=== PATIENT | female | born 1985 | race Caucasian/White ===

== ENCOUNTER 2021-05-06 12:28 | Emergency (ER) | payer OTHER, SELFPAY ==
--- NOTE | 2021-05-06 12:37 | ED.URI ---
HPI - URI/Sore Throat General Chief Complaint: Upper Respiratory Infection Stated Complaint: sore throat Time Seen by Provider: 05/06/21 12:37 Source: patient and RN notes reviewed History of Present Illness HPI Narrative: Patient is a 35-year-old female who presents the urgent care with complaints of a sore throat that started last night. 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 Denies of any other upper respiratory symptoms. Denies of fever, chills, nausea, vomiting. Patient has not taken anything [id number] for her symptoms. No other acute complaints. No acute distress noted. Patient aware of the plan of care. Some parts of this dictation were generated by voice recognition software and may contain typographical and/or grammatical inaccuracies. Related Data Home Medications Medication Instructions Recorded Confirmed estradiol 0.5 mg tablet 0.5 mg PO DAILY 01/19/21 05/06/21 fluticasone propionate 50 1 spray INTRANASAL DAILY PRN 01/19/21 05/06/21 mcg/actuation nasal spray,suspension Allergies Allergy/AdvReac Type Severity Reaction Status Date / Time adhesive Allergy Unknown RASH-GLUE Verified 05/06/21 12:34 CAUSES BLISTERS OVER INCISIONS cefaclor Allergy Unknown Swelling Verified 05/06/21 12:34 ketoconazole Allergy Unknown Skin Verified 05/06/21 12:34 Reaction sulfamethizole Allergy Unknown Swelling Verified 05/06/21 12:34 trimethoprim Allergy Unknown Unknown Verified 03/01/21 10:25 Review of Systems Review of Systems: CONSTITUTIONAL: Denies fever, chills, or sweats. EYES: Denies visual changes, redness, or discharge. ENT: Denies rhinorrhea, congestion, otalgia. Reports of sore throat CARDIOVASCULAR: Denies chest pain, palpitations, or edema. RESPIRATORY: Denies cough or dyspnea. GASTROINTESTINAL: Denies abdominal pain, nausea, vomiting, or diarrhea. GENITOURINARY: Denies dysuria or hematuria. SKIN: Denies rash or itching. MUSCULOSKELETAL: Denies back pain, joint pain, or myalgia. NEUROLOGIC: Denies headache, numbness, or weakness. All other systems reviewed are negative, except as documented in HPI. [facility] Surgical History Surgical History (Updated 03/01/21 @ 10:28 by Dorcas Klein CMA) History of hysterectomy Family History Family History Grandparent Diabetes mellitus Family history of malignant neoplasm of breast Family history of malignant neoplasm of ovary Cerebrovascular accident Family history of arthritis Father Hypertension Mother Family history of seizure disorder Social History Social History (Updated 03/01/21 @ 10:28 by Dorcas Klein [facility]) Alcohol intake: never Substance use: never Gender identity (if verbalized by the patient): Female Comments At the time of my signature, I reviewed and agree with the nursing past medical, surgical, social, and family history. There is no relevant family history pertinent to the patient complaint. Exam Narrative: GENERAL: This is a well-nourished, well-developed patient, in no apparent distress. HEAD: normocephalic, atraumatic. EYES: PERRL. Sclera clear/white. Vision is grossly intact. EARS: External ears normal, auditory canals clear and without drainage, TMs normal without perforation. Hearing grossly intact. NOSE: External nose normal with no obvious nasal discharge, nares without redness, no rhinorrhea. THROAT: Mucous membranes moist, moderate erythema of the posterior oropharynx with moderate postnasal drainage. No exudate or ulceration NECK: Neck supple, non-tender without lymphadenopathy CARDIOVASCULAR: Regular rate and rhythm without murmurs, gallops, or rubs. RESPIRATORY: Clear to auscultation. Breath sounds equal bilaterally. No wheezes, rales, or rhonchi. SKIN: warm, intact with no suspicious lesions or rash, good texture and turgor. NEURO: awake, alert, and oriented to
[2021-05-06 12:39] VITALS: BP 145/92; PULSE 81; RESP 16; TEMP 36.7; O2SAT 100
== END 2021-05-06 13:00 | disposition home or self-care (01) ==
PROVIDERS: Emergency Provider Nurse Practitioner Family; PCP Family Medicine
DX: J02.9 Acute pharyngitis, unspecified (principal)
CPT/HCPCS: 87081; 87880; 99213; G0463

== ENCOUNTER → 2021-06-02 14:57 | Outpatient (CLI) | payer OTHER, SELFPAY ==
--- NOTE | ~2021-06-02 | XR_ITS ---
EXAMINATION: XR hand BI arthritis min 3V DATE: 06/02/2021 15:12 INDICATION: Pain in joints of right hand. TECHNIQUE: 4 views of right hand and 4 views of left hand on 7 radiographs were obtained. COMPARISON: None. FINDINGS: RIGHT HAND: Bone alignment is normal. No fracture. There is mild osteoarthritis of first and third me tacarpophalangeal joints characterized by tiny marginal osteophytes. LEFT HAND: Bone alignment is normal. No fracture. There is a benign bone island in head of third meta carpal. Joint spaces are normal. IMPRESSION: 1. Mild polyarticular osteoarthritis of right hand. Reviewed, dictated and finalized at location A.
== END ==
PROVIDERS: PCP Physician Assistant Medical; Visit Provider Physician Assistant Medical
DX: M25.541 Pain in joints of right hand (principal); M19.041 Primary osteoarthritis, right hand; M18.11 Unilateral primary osteoarthritis of first carpometacarpal joint, right hand
CPT/HCPCS: 73130

== ENCOUNTER 2022-07-11 08:57 | Emergency (ER) | payer OTHER, SELFPAY ==
--- NOTE | 2022-07-11 09:57 | ED.URI ---
HPI - URI/Sore Throat General Chief Complaint: Upper Respiratory Infection Stated Complaint: SORE THROAT/WHITE SPOT IN THROAT Time Seen by Provider: 07/11/22 09:52 Source: patient Mode of arrival: ambulatory Limitations: no limitations History of Present Illness HPI Narrative: Patient presents today complaining of a sore throat since yesterday. Denies any additional symptoms to include fever, shortness of breath, difficulty swallowing. States was diagnosed with strep throat 4 days ago. She currently rates her pain 4/10, and has tried no [id number] treatment prior to arrival. Related Data Allergies Allergy/AdvReac Type Severity Reaction Status Date / Time adhesive Allergy Unknown RASH-GLUE Verified 07/11/22 09:50 CAUSES BLISTERS OVER INCISIONS cefaclor Allergy Unknown Swelling Verified 07/11/22 09:50 ketoconazole Allergy Unknown Skin Verified 07/11/22 09:50 Reaction sulfamethizole Allergy Unknown Swelling Verified 07/11/22 09:50 trimethoprim Allergy Unknown Unknown Verified 07/11/22 09:50 Review of Systems Review of Systems: CONSTITUTIONAL: Denies body aches, fever, chills, or sweats. EYES: Denies visual changes, redness, or discharge. ENT: Denies rhinorrhea, congestion, or otalgia.+ sore throat CARDIOVASCULAR: Denies chest pain, palpitations, or edema. RESPIRATORY: Denies cough or dyspnea. GASTROINTESTINAL: Denies abdominal pain, nausea, vomiting, or diarrhea. GENITOURINARY: Denies dysuria or hematuria. SKIN: Denies rash, itching, or wounds. MUSCULOSKELETAL: Denies back pain, joint pain, or myalgia. NEUROLOGIC: Denies headache, numbness, tingling, or weakness. PSYCH: Denies depression or anxiety. [facility] Past Medical History Medical History MELVIN positive Bilateral hand pain Bilateral hand pain Myalgia Surgical History Surgical History History of hysterectomy Family History Family History Grandparent Diabetes mellitus Family history of malignant neoplasm of breast Family history of malignant neoplasm of ovary Cerebrovascular accident Family history of arthritis Father Hypertension Mother Family history of seizure disorder Social History Social History Smoking status: Never smoker Alcohol intake: never Substance use: never Gender identity (if verbalized by the patient): Female Comments At time of signature, I have reviewed and agree with nursing past medical, surgical, social and family history unless otherwise noted. Please see nursing chart for further information. There is no relevant family history pertinent to the presenting complaint Exam Narrative: GENERAL: Well-appearing, well-nourished, and in no acute distress. HEAD: Normocephalic, atraumatic. EYES: EOMI. No redness or drainage. Conjunctivae normal. ENT: Mucous membranes pink and moist. Nares clear. No rhinorrhea. TMs normal bilaterally. Throat erythematous and mildly edematous without exudate. Uvula midline. NECK: Normal AROM. Supple. No lymphadenopathy. CHEST: No respiratory distress. Clear to auscultation. HEART: Regular rate and rhythm. No murmur appreciated. Normal peripheral pulses. EXTREMITIES: Normal range of motion. No edema. SKIN: Warm, dry, no rash. Capillary refill normal. Normal skin turgor. NEURO: No focal deficits. Alert and oriented x3. Gait steady. PSYCH: Normal affect. No signs of depression or anxiety. Course Course Level of Care: Express Care Visit Vital Signs Vital signs: Vital Signs Temperature 97.8 F 07/11/22 10:02 Pulse Rate 92 07/11/22 10:02 Respiratory Rate 16 07/11/22 10:02 Blood Pressure 121/83 07/11/22 10:02 Pulse Oximetry 100 07/11/22 10:02 Oxygen Delivery Room Air 07/11/22 10:02 Te
[2022-07-11 10:02] VITALS: BP 121/83; PULSE 92; RESP 16; TEMP 36.6; O2SAT 100
== END 2022-07-11 10:18 | disposition home or self-care (01) ==
PROVIDERS: Emergency Provider Nurse Practitioner; PCP Family Medicine
DX: J02.0 Streptococcal pharyngitis (principal)
CPT/HCPCS: 87880; 99213; G0463

== ENCOUNTER 2023-09-13 16:07 | Emergency (ER) | payer OTHER, SELFPAY ==
[2023-09-13 16:17] VITALS: BP 136/96; PULSE 121; RESP 16; TEMP 36.8; O2SAT 100
--- NOTE | 2023-09-13 17:02 | ED.ABDPAIN ---
HPI - Abdominal Pain General Chief Complaint: Abdominal Pain Stated Complaint: Abdominal pain Time Seen by Provider: 09/13/23 16:15 Source: patient and RN notes reviewed Mode of arrival: ambulatory Limitations: no limitations History of Present Illness HPI narrative: Patient presents today complaining of left lower quadrant abdominal pain that started this morning. She denies any additional symptoms to include fever, nausea, vomiting, diarrhea, constipation, urinary symptoms. She currently rates her pain at rest 3/10, but this increases to 8/10 with movement. She has tried no [id number] medication for symptoms prior to arrival. She has had a full hysterectomy due to endometriosis Related Data Allergies Allergy/AdvReac Type Severity Reaction Status Date / Time adhesive Allergy Unknown RASH-GLUE Verified 09/13/23 16:16 CAUSES BLISTERS OVER INCISIONS cefaclor Allergy Unknown Swelling Verified 09/13/23 16:16 ketoconazole Allergy Unknown Skin Verified 09/13/23 16:16 Reaction sulfamethizole Allergy Unknown Swelling Verified 09/13/23 16:16 trimethoprim Allergy Unknown Unknown Verified 09/13/23 16:16 Review of Systems Review of Systems: CONSTITUTIONAL: Denies body aches, fever, chills, or sweats. EYES: Denies visual changes, redness, or discharge. ENT: Denies rhinorrhea, congestion, sore throat, or otalgia. CARDIOVASCULAR: Denies chest pain, palpitations, or edema. RESPIRATORY: Denies cough or dyspnea. GASTROINTESTINAL: Denies nausea, vomiting, or diarrhea.+ abdominal pain GENITOURINARY: Denies dysuria or hematuria. SKIN: Denies rash, itching, or wounds. MUSCULOSKELETAL: Denies back pain, joint pain, or myalgia. NEUROLOGIC: Denies headache, numbness, tingling, or weakness. PSYCH: Denies depression or anxiety. [facility] Past Medical History Medical History MELVIN positive Bilateral hand pain Bilateral hand pain Myalgia Surgical History Surgical History History of hysterectomy Family History Family History Grandparent Diabetes mellitus Family history of malignant neoplasm of breast Family history of malignant neoplasm of ovary Cerebrovascular accident Family history of arthritis Father Hypertension Mother Family history of seizure disorder Social History Social History Smoking status: Never smoker Alcohol intake: never Substance use: never Lack of Transportation: No Lack of Food: Never True Current Housing: I Have Housing Concerned About Future Housing: No Difficulty Paying Gas/Electric Bills: No Difficulty Paying for Meds: No Currently Unemployed: No Education: Bachelor's Degree Difficulty w/ Childcare or Family Care: No Gender identity (if verbalized by the patient): Female Comments At time of signature, I have reviewed and agree with nursing past medical, surgical, social and family history unless otherwise noted. Please see nursing chart for further information. There is no relevant family history pertinent to the presenting complaint Exam Narrative: GENERAL: Well-appearing, well-nourished, and in no acute distress. HEAD: Normocephalic, atraumatic. EYES: EOMI. No redness or drainage. Conjunctivae normal. ENT: Mucous membranes pink and moist. NECK: Normal AROM. CHEST: No respiratory distress. Clear to auscultation. HEART: Regular rate and rhythm. No murmur appreciated. Normal peripheral pulses. ABDOMEN: Soft, nondistended, normal active bowel sounds. + tenderness with rebound and guarding to the left lower abdomen, even with light touch EXTREMITIES: Normal range of motion. No edema. SKIN: Warm, dry, no rash. Capillary refill normal. Normal skin turgor. NEURO: No focal deficits. Alert and oriented
== END 2023-09-13 17:09 | disposition short-term general hospital (02) ==
PROVIDERS: Emergency Provider Nurse Practitioner; PCP Family Medicine
DX: R10.32 Left lower quadrant pain (principal)
CPT/HCPCS: 99212; G0463

== ENCOUNTER 2023-09-13 17:30 | Emergency (ER) | payer OTHER, SELFPAY ==
[2023-09-13] VITALS (10 sets, daily range): BP systolic 117–140; BP diastolic 73–109; PULSE 106–110; RESP 16–18; TEMP 36.3–36.7; O2SAT 98–100
--- NOTE | ~2023-09-13 | CT_ITS ---
EXAMINATION: CT abdomen pelvis w con DATE: 09/13/2023 19:27 INDICATION: Left lower quadrant abdominal pain TECHNIQUE: Computed tomography (CT) of the abdomen and pelvis was performed with 100 mL Omnipaque 350 intravenous contrast. Automated exposure control and iterative reconstruction technique were employe d. The dose-length product was 362.36 mGy-cm. COMPARISON: None. FINDINGS: The visualized portions of the lung bases demonstrate mild atelectasis. No pleural effusion . The heart size is normal. No pericardial effusion. There is mild pectus excavatum. The liver, gallb ladder, spleen, pancreas, adrenal glands, and kidneys are normal. There are no dilated loops of bowel . The appendix is normal. There is fat stranding around an epiploic appendage of sigmoid colon, consi stent with epiploic appendagitis. There are no pathologically enlarged lymph nodes. There is no free intraperitoneal fluid. The bones are unremarkable. IMPRESSION: 1. Epiploic appendagitis of sigmoid colon. Reviewed, dictated and finalized at location E. [employer]NALY[employer]EL[employer]
[2023-09-13 17:49] LABS: Basophils Absolute Auto 0.1 K/mm3 (0.0-0.1); Basophils Percent Auto 0.8 % (0.2-1.2); Eosinophils Absolute Auto 0.2 K/mm3 (0-0.3); Eosinophils Percent Auto 1.8 % (0-4.4); Hematocrit 43.6 % (37.0-47.0); Immature Granulocyte Absolute 0.04 K/mm3 (0.00-0.031); Immature Granulocyte Percent A 0.3 % (0-0.5); Lymphocytes Absolute Auto 2.29 K/mm3 (0.9-3.2); Lymphocytes Percent Auto 19.7 % (18.3-44.2); Mean Corpuscular HGB Conc 32.1 g/dl (32-36); Mean Corpuscular Hemoglobin 27.9 pg (26-34); Mean Platelet Volume 11.4 fl (7.4-10.4); Monocytes Absolute Auto 0.8 K/mm3 (0.1-0.6); Monocytes Percent Auto 6.4 % (2.6-8.5); Neutrophils Absolute Auto 8.3 K/mm3 (1.3-6.7); Platelet Count Result 327 k/mm3 (150-375); Red Blood Count 5.01 M/mm3 (4.2-5.4); Red Cell Distribution Width 13.2 % (11.5-14.5); White Blood Count 11.6 K/mm3 (4.5-10.0)
[2023-09-13 18:03] LABS: Appearance Urine Cloudy (Clear); Bacteria Urine 4+ /hpf; Bilirubin Urine Negative (Negative); Blood Urine Negative (Negative); Color Urine Yellow (Yellow); Glucose Urine UA Negative (Negative); Ketones Urine 1+ mg/dL (Negative); Leukocyte Esterase Ur Negative LEU/UL (Negative); Nitrate Urine Negative (Negative); Protein Urine Negative (Negative); RBC Urine 0-2 /hpf (0-2); Specific Grav Ur 1.009 (1.001-1.035); Squamous Epithelial Cell Urine Few /hpf (Few); Urobilinogen Urine 0.2 mg/dL (<2.0); pH Urine 5.5 (5.0-9.0)
--- NOTE | 2023-09-13 18:04 | ED.GENADULT ---
HPI - General Adult General Chief complaint: Abdominal Pain Stated complaint: left flank pain Time Seen by Provider: 09/13/23 17:45 Source: patient Mode of arrival: ambulatory Limitations: no limitations History of Present Illness HPI narrative: This is a 38-year-old female who presents to the ED with chief complaint of left lower quadrant abdominal pain onset this morning shortly after waking up. Reports that it got worse throughout the day so she went to urgent care and was referred here. Reports pain is 8/10. Denies any urinary issues or problems with bowel movements. Denies nausea, vomiting, diarrhea, fevers, chills. reports a total of 5 laparoscopic procedures for endometriosis and hysterectomy but no other abdominal surgical history. Related Data Allergies Allergy/AdvReac Type Severity Reaction Status Date / Time adhesive Allergy Unknown RASH-GLUE Verified 09/13/23 17:36 CAUSES BLISTERS OVER INCISIONS cefaclor Allergy Unknown Swelling Verified 09/13/23 17:36 ketoconazole Allergy Unknown Skin Verified 09/13/23 17:36 Reaction sulfamethizole Allergy Unknown Swelling Verified 09/13/23 17:36 trimethoprim Allergy Unknown Unknown Verified 09/13/23 17:36 Review of Systems Review of Systems: All systems as dictated in HPI [facility] Past Medical History Medical History MELVIN positive Bilateral hand pain Bilateral hand pain Myalgia Surgical History Surgical History History of hysterectomy Family History Family History Grandparent Diabetes mellitus Family history of malignant neoplasm of breast Family history of malignant neoplasm of ovary Cerebrovascular accident Family history of arthritis Father Hypertension Mother Family history of seizure disorder Social History Social History Smoking status: Never smoker Alcohol intake: never Substance use: never Lack of Transportation: No Lack of Food: Never True Current Housing: I Have Housing Concerned About Future Housing: No Difficulty Paying Gas/Electric Bills: No Difficulty Paying for Meds: No Currently Unemployed: No Education: Bachelor's Degree Difficulty w/ Childcare or Family Care: No Gender identity (if verbalized by the patient): Female Exam Narrative: GENERAL: Well-appearing, well-nourished, and in no acute distress. HEAD: Normocephalic, atraumatic. EYES: PERRLA and EOMI. ENT: Nares clear, no rhinorrhea or epistaxis. Mucous membranes moist. Oropharynx without tonsillar hypertrophy exudate or other lesions. NECK: Supple. No adenopathy or masses. CHEST: No respiratory distress. Clear to auscultation. No wheezes rales or rhonchi HEART: Regular rate and rhythm. No murmur heard. Normal peripheral pulses. ABDOMEN: left lower quadrant tenderness focally. Soft, otherwise nontender, nondistended, normal active bowel sounds. negative. negative peritoneal signs. MSK: Normal range of motion. No edema. SKIN: Warm, dry, no rash. NEURO: Alert and oriented x3. No focal deficits. PSYCH: Normal mood and affect. Course Vital Signs Vital signs: Vital Signs Temperature 97.4 F L 09/13/23 17:33 Pulse Rate 106 H 09/13/23 17:33 Respiratory Rate 18 09/13/23 17:33 Blood Pressure 140/109 H 09/13/23 17:33 Pulse Oximetry 100 09/13/23 17:33 Oxygen Delivery Room Air 09/13/23 17:33 Temperature 98.0 F 09/13/23 18:29 Pulse Rate 110 H 09/13/23 18:29 Respiratory Rate 16 09/13/23 18:29 Blood Pressure 117/73 09/13/23 20:52 Pulse Oximetry 100 09/13/23 20:02 Oxygen Delivery Room Air 09/13/23 17:[address] [facility] Narrative Medical decision making narrative: This is a 30-year-old female who presents to the ED
[2023-09-13 18:12] LABS: Add Urine Microscopic? YES
[2023-09-13] MEDS: SODIUM CHLORIDE 0.9% IV 1,000 ML 999 ML IV CONT (18:45)
[2023-09-13 19:05] LABS: Alanine Aminotransferase 22 U/L (6-35); Albumin Level 4.9 g/dL (3.5-5.1); Alkaline Phosphatase 65 U/L (38-126); Anion Gap 12 mmol/L (8-16); Aspartate Amino Transferase 38 U/L (14-36); Bilirubin,Total 0.8 mg/dL (0.2-1.3); Blood Urea Nitrogen 14 mg/dL (7-17); Calcium 10.1 mg/dL (8.4-10.2); Carbon Dioxide 25 mmol/L (22-30); Chloride 102 mmol/L (98-107); Estimated CRCL calculation 81 ml/min; Estimated Glomerular Filt Rate > 60; Glucose 92 mg/dL (65-110); Lipase 221 U/L (23-300); Potassium 4.3 mmol/L (3.4-5.0); Sodium 139 mmol/L (137-145)
== END 2023-09-13 20:53 | disposition home or self-care (01) ==
PROVIDERS: Emergency Medicine; Emergency Provider Physician Assistant; PCP Family Medicine
DX: K63.89 Other specified diseases of intestine (principal); Z90.710 Acquired absence of both cervix and uterus
CPT/HCPCS: 36415; 74177; 80053; 81001; 83690; 85025; 87086; 96360; 99284; J7030; Q9967

== ENCOUNTER 2025-04-19 09:44 | Emergency (ER) | payer OTHER, SELFPAY ==
--- NOTE | 2025-04-19 09:53 | ED.URI ---
HPI - URI/Sore Throat General Chief Complaint: Upper Respiratory Infection Stated Complaint: SORE THROAT Time Seen by Provider: 04/19/25 10:29 Source: patient and RN notes reviewed Mode of arrival: ambulatory Limitations: no limitations History of Present Illness HPI Narrative: 39-year-old female presents concern for sore throat and exposure to strep throat. She has had a sore throat and ear pressure for 1 day, her had strep throat last week. 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 She denies runny nose, stuffy nose, cough, fever, body aches, chills, sweats. MD elicited complaint: sore throat Related Data Allergies Allergy/AdvReac Type Severity Reaction Status Date / Time adhesive Allergy Unknown RASH-GLUE Verified 02/18/25 11:35 CAUSES BLISTERS OVER INCISIONS cefaclor Allergy Unknown Swelling Verified 02/18/25 11:35 ketoconazole Allergy Unknown Skin Verified 02/18/25 11:35 Reaction sulfamethizole Allergy Unknown Swelling Verified 02/18/25 11:35 trimethoprim Allergy Unknown Unknown Verified 02/18/25 11:35 Review of Systems Review of Systems: CONSTITUTIONAL: Denies malaise, chills, sweats, or fever. EYES: Denies visual changes, redness, or discharge. ENT: Reports rhinorrhea, congestion, sinus pain. Reports otalgia and sore throat. CARDIOVASCULAR: Denies chest pain, palpitations, or edema. RESPIRATORY: Denies cough. Denies dyspnea. GASTROINTESTINAL: Denies abdominal pain, nausea, vomiting, diarrhea SKIN: Denies rash or itching. MUSCULOSKELETAL: Denies myalgia. NEUROLOGIC: Denies headache. All systems reviewed & are unremarkable except as noted in HPI and below PMFSH Past Medical History Medical History Myalgia Bilateral hand pain Bilateral hand pain MELVIN positive Surgical History Surgical History History of hysterectomy Family History Family History Grandparent Diabetes mellitus Family history of malignant neoplasm of breast Family history of malignant neoplasm of ovary Cerebrovascular accident Family history of arthritis Father Hypertension Mother Family history of seizure disorder Social History Social History (Updated 02/18/25 @ 11:36 by JACOB Ravi Smoking status: Never smoker Alcohol intake: never Substance use: never Substance use type: marijuana Last use: gummies at night Lack of Transportation: No Lack of Food: Never True Current Housing: I Have Housing Concerned About Future Housing: No Difficulty Paying Gas/Electric Bills: No Difficulty Paying for Meds: No Currently Unemployed: No Education: Bachelor's Degree Difficulty w/ Childcare or Family Care: No Gender identity (if verbalized by the patient): Female Comments At time of signature, agree with nursing past medical, surgical, social and family history. There is no relevant family history pertinent to the presenting complaint Exam Narrative: GENERAL: Well-appearing, well-nourished, and in no acute distress. HEAD: Normocephalic EYES: PERRLA, conjunctivae clear ENT: Nares clear. Mucous membranes moist. TM pearly humphreys with dull light reflex bilaterally; no tragal tenderness. Oropharynx erythematous without lesions. Tonsils not enlarged and without exudate, no drooling, no hoarseness, no trismus, uvula midline. NECK: Supple. No lymphadenopathy CHEST: Clear to auscultation, breath sounds equal. No wheezing, rhonchi, rales, or stridor. No respiratory distress, speaks in full sentences. HEART: Regular rate and rhythm. No murmur heard. SKIN: Warm, dry, no rash. NEURO: Alert and oriented x3. PSYCH: Normal mood and affect Course Course Emergency Course: Patient is aware of diagnosis, understands and agrees to treatment plan. Anticipatory guidance given. Patient agrees to follow-up as directed and is aware of reasons to seek care at the emergency department. Portions of this record may have been created with voice recognition software Level of Care: Express Care Visit Vital Signs Vital signs: Reviewed. MDM - URI/Sore Throat MDM Narrative Medical decision making narrative: Differential diagnosis considered: Graham virus, strep pharyngitis, allergic rhinitis, upper respiratory tract infection, sinusitis, rhinosinusitis, nasopharyngitis. viral pharyngitis, otitis media, otitis externa, pneumonia, bronchitis, viral cough syndrome, viral syndrome, and influenza. Exam findings show no acute concerns or changes; patient is non-toxic appearing and is in no distress. Patient is appropriate for outpatient treatment and follow-up. Lab Data Attestation: I reviewed the patient's lab results. Critical Care Time Critical Care Time Critical Care Time: No Discharge Plan Discharge Clinical Impression: Pharyngitis, Exposure to strep throat Patient Disposition: Home Condition: Stable Instructions: Antibiotic Form, Strep Throat (ED) Additional Instructions: -Take the medication as prescribed. Throw away the toothbrush after 24hours of antibiotic. -Eat and drink things that are easy to swallow, like tea or soup, or popsicles to suck on. -Oral rinses such as: Salt water gargles and/or may use topical anesthetic (eg. Chloraseptic spray) or lozenges to relieve dryness or throat pain). -Take Tylenol and ibuprofen as needed for pain and fever as directed. -Frequent hand washing or hand cellular biologist is one of the best ways to prevent spread of infection. -Follow up with primary care provider in 2-3 days if condition is not improving; or seek ER visit if you have trouble breathing, cannot drink enough fluids, have muffled voice, difficulty opening your mouth, or severe swelling. Patient Language: Nauruan Prescriptions: New azithromycin [Zithromax Z-Talon] 250 mg tablet See Rx Instructions .ROUTE .COMPLEX Qty: 6 0RF Rx Instructions: take 500 mg today (day 1), then 250 mg for 4 days (days 2-5) No Action selenium sulfide 2.5 % lotion 1 applic topical DAILY 7 Days Qty: 120 2RF cetirizine-pseudoephedrine [Zyrtec-D] 5-120 mg tablet extended release 12 hr 1 tablet PO .qd Qty: 90 3RF fluticasone propionate [Flonase Allergy Relief] 50 mcg/actuation spray,suspension 2 spray intranasal DAILY Qty: 16 3RF Rx Instructions: administer into each nostril duloxetine 40 mg capsule,delayed release(DR/EC) See Rx Instructions .ROUTE .COMPLEX Qty: 90 1RF Dose Instruction: TAKE 1 CAPSULE DAILY Rx Instructions: TAKE 1 CAPSULE DAILY estradiol [Estrace] 1 mg tablet 1 mg PO DAILY Qty: 90 1RF Follow-up/Referrals: Pj Ladd MD [Primary Care Provider, [facility]]
[2025-04-19 10:16] VITALS: BP 134/90; PULSE 75; RESP 20; TEMP 36.4; O2SAT 100
[2025-04-19 10:22] LABS: EDSTREPNEGPOS1 Negative (Negative)
== END 2025-04-19 10:47 | disposition home or self-care (01) ==
PROVIDERS: Emergency Provider Nurse Practitioner; PCP Family Medicine
DX: J02.9 Acute pharyngitis, unspecified (principal); Z20.818 Contact with and (suspected) exposure to other bacterial communicable diseases
CPT/HCPCS: 87081; 87880; 99213; G0463